=== PATIENT | female | born 1965 | race Caucasian/White ===

== ENCOUNTER 2017-11-22 13:32 | Observation (INO) | payer BC ==
[~2017-11-22] VITALS: Ht 167.6 cm; Wt 76.8 kg
[2017-11-22] VITALS (9 sets, daily range): BP systolic 109–170; BP diastolic 76–90; PULSE 56–87; RESP 16–20; TEMP 97.4–98.7; O2SAT 98–100
[2017-11-22] MEDS ORDERED: ASPIRIN 81 MG CHEW TAB PO ONE (14:00)
[2017-11-22] MEDS ORDERED: SODIUM CHLORIDE 0.9% FLUSH 10 ML FLUSH IVF PRN (14:00)
--- NOTE | 2017-11-22 14:37 | RADRPT ---
EXAM DATE/TIME: 11/22/2017 14:15 [place] COMPARISON: No previous studies available for comparison. INDICATIONS : Chest pain MEDICAL HISTORY : None. SURGICAL HISTORY : None. ENCOUNTER: Initial ACUITY: 2 days PAIN SCORE: 3/10 LOCATION: Bilateral chest FINDINGS: A single view of the chest demonstrates the lungs to be symmetrically aerated without evidence of mas s, infiltrate or effusion. The cardiomediastinal contours are unremarkable. Osseous structures are intact. CONCLUSION: No acute disease. Tone Pereyra MD FACR on November 22, 2017 at 14:33 Board Certified Radiologist. This report was verified electronically.
[2017-11-22 14:59] LABS: AUTOMATED NEUTROPHIL # 3.6 TH/MM3 (1.8-7.7); BASOPHIL % 0.3 % (0.0-2.0); EOSINOPHIL # 0.1 TH/MM3 (0-0.4); EOSINOPHIL % 1.2 % (0.0-4.0); HEMATOCRIT 42.4 % (35.0-46.0); HEMOGLOBIN 14.9 GM/DL (11.6-15.3); LYMPH % 39.8 % (9.0-44.0); LYMPHOCYTE # 2.8 TH/MM3 (1.0-4.8); MEAN CELL VOLUME 87.3 FL (80.0-100.0); MEAN CORPUSCULAR HEMOGLOBIN 30.6 PG (27.0-34.0); MEAN PLATELET VOLUME 9.6 FL (7.0-11.0); MONO % 6.6 % (0.0-8.0); MONOCYTE # 0.5 TH/MM3 (0-0.9); NEUT % 52.1 % (16.0-70.0); PLATELET COUNT 228 TH/MM3 (150-450); RED BLOOD COUNT 4.86 MIL/MM3 (4.00-5.30); RED CELL DISTRIBUTION WIDTH 12.6 % (11.6-17.2)
[2017-11-22 15:05] LABS: CHLORIDE 106 MEQ/L (98-107); SODIUM (NA) 140 MEQ/L (136-145)
[2017-11-22 15:09] LABS: ALBUMIN 4.2 GM/DL (3.4-5.0); BICARBONATE 27.5 MEQ/L (21.0-32.0); BLOOD UREA NITROGEN 10 MG/DL (7-18); CALCIUM 9.2 MG/DL (8.5-10.1); GLUCOSE,RANDOM 88 MG/DL (74-106)
[2017-11-22 15:12] LABS: ALT (GPT) 39 U/L (10-53); AST (GOT) 29 U/L (15-37); CREATININE 0.79 MG/DL (0.50-1.00); GLOMERULAR FILTRATION RATE 76 ML/MIN (>89)
[2017-11-22 15:14] LABS: TOTAL BILIRUBIN ADULT 0.6 MG/DL (0.2-1.0); TOTAL PROTEIN 8.7 GM/DL (6.4-8.2)
[2017-11-22 15:15] LABS: ALKALINE PHOSPHATASE 83 U/L (45-117)
[2017-11-22 15:17] LABS: TROPONIN I LESS THAN 0.02 NG/ML (0.02-0.05)
[2017-11-22 15:24] LABS: PROTHROMBIN TIME - PATIENT 10.4 SEC (9.8-11.6)
--- NOTE | 2017-11-22 15:33 | PD ---
HPI Chief Complaint: Cardiac Complaint Time Seen by Provider: 13:55 Travel History International Travel<30 days: No Contact w/Intl Traveler<30days: No Traveled to known affect area: No History of Present Illness HPI Patient is a 52-year-old female who comes in complaining of palpitations and shortness of breath. She says this started last night, got worse this morning. She says she feels a fullness in her chest, but is not specifically had chest pain. She also says that she feels like she has trouble catching her breath. She says she has extensive cardiac history in her family, her sister has had an RI, her mother of CHF, and her father suffers from severe CHF as well. She works as a nurse, and was concerned that while she was having the symptoms, she took her blood pressure and it was elevated. She denies any leg swelling or pain. She had a hysterectomy several years ago, and is not on any hormone replacement. She denies any recent travel. She is a non-smoker and denies drug use. She says that nothing seems to make her symptoms better. Severity is moderate. PFSH Past Medical History Cancer: Yes (MALIGNANT MELANOMA) Chemotherapy: No Immunizations Current: Yes Radiation Therapy: No Influenza Vaccination: No ?: Not Past Surgical History Hysterectomy: Yes Other Surgery: Yes (RIGHT LATERAL THIGH MELANOMA REMOVED) Social History Alcohol Use: Yes (OCC) Tobacco Use: No (NEVER) Substance Use: No Allergies-Medications (Allergen,Severity, Reaction): Coded Allergies: Sulfa (Sulfonamide Antibiotics) (Verified Allergy, Severe, joint swelling/ rash, 11/22/17) penicillin G (Verified Allergy, Intermediate, rash, 11/22/17) Reported Meds & Prescriptions Reported Meds & Active Scripts Active No Active Prescriptions or Reported Medications Review of Systems Except as stated in HPI: all other systems reviewed are Neg General / Constitutional: No: Fever, Chills HENT: No: Headaches, Lightheadedness Cardiovascular: Positive: Chest Pain or Discomfort, Palpitations Respiratory: Positive: Shortness of Breath Gastrointestinal: No: Nausea, Vomiting Musculoskeletal: No: Myalgias, Edema Skin: No Rash, No Change in Pigmentation Neurologic: No: Weakness, Dizziness Physical Exam Narrative GENERAL: Awake and alert, in no acute distress. SKIN: Focused skin assessment warm/dry. HEAD: Atraumatic. Normocephalic. EYES: Pupils equal and round. No scleral icterus. ENT: Mucous membranes pink and moist. NECK: Trachea midline. No JVD. CARDIOVASCULAR: Regular rate and rhythm. No murmur appreciated. RESPIRATORY: No accessory muscle use. Clear to auscultation. Breath sounds equal bilaterally. GASTROINTESTINAL: Abdomen soft, non-tender, nondistended. MUSCULOSKELETAL: No obvious deformities. No clubbing. No cyanosis. No edema. NEUROLOGICAL: Awake and alert. No obvious cranial nerve deficits. Motor grossly within normal limits. Normal speech. PSYCHIATRIC: Appropriate mood and affect; insight and judgment normal. Data Data Last Documented VS Vital Signs Date Time Temp Pulse Resp B/P (MAP) Pulse Ox O2 Delivery O2 Flow Rate FiO2 11/22/17 14:45 16 100 Room Air 11/22/17 14:45 70 124/90 (101) 11/22/17 13:48 98.5 Orders Orders Electrocardiogram (11/22/17 14:00) Complete Blood Count With Diff (11/22/17 14:00) Comprehensive Metabolic Panel (11/22/17 14:00) D-Dimer (11/22/17 14:00) Prothrombin Time / Inr (Pt) (11/22/17 14:00) Act Partial Throm Time (Ptt) (11/22/17 14:00) Troponin I (11/22/17 14:00) Chest, Single Ap (11/22/17 14:00) Ecg Monitoring (11/22/17 14:00) Bilateral Bp Monitoring (11/22/17 14:00) Iv Access Insert/Monitor (11/22/17 14:00) Oximetry (11/22/17 14:00) Oxygen Administration (11/22/17 14:00) Aspirin Chew (Aspirin Chew) (11/22/17 14:00) Sodium Chloride 0.9% Flush (Ns Flush) (11/22/17 14:00) Labs Laboratory Tests Test 11/22/17 14:45 White Blood Count 7.0 TH/MM3 Red Blood Count 4.86 MIL/MM3 Hemoglobin 14.9 GM/DL Hematocrit 42.4 % Mean Corpuscular Volume 87.3 FL Mean Corpuscular Hemoglobin 30.6 PG Mean Corpuscular Hemoglobin Concent 35.0 % Red Cell Distribution Width 12.6 % Platelet Count 228 TH/MM3 Mean Platelet Volume 9.6 FL Neutrophils (%) (Auto) 52.1 % Lymphocytes (%) (Auto) 39.8 % Monocytes (%) (Auto) 6.6 % Eosinophils (%) (Auto) 1.2 % Basophils (%) (Auto) 0.3 % Neutrophils # (Auto) 3.6 TH/MM3 Lymphocytes # (Auto) 2.8 TH/MM3 Monocytes # (Auto) 0.5 TH/MM3 Eosinophils # (Auto) 0.1 TH/MM3 Basophils # (Auto) 0.0 TH/MM3 CBC Comment DIFF FINAL Differential Comment Blood Urea Nitrogen 10 MG/DL Creatinine 0.79 MG/DL Random Glucose 88 MG/DL Total Protein 8.7 GM/DL Albumin 4.2 GM/DL Calcium Level 9.2 MG/DL Alkaline Phosphatase 83 U/L Aspartate Amino Transf (AST/SGOT) 29 U/L Alanine Aminotransferase (ALT/SGPT) 39 U/L Total Bilirubin 0.6 MG/DL Sodium Level 140 MEQ/L Potassium Level 3.9 MEQ/L Chloride Level 106 MEQ/L Carbon Dioxide Level 27.5 MEQ/L Anion Gap 7 MEQ/L Estimat Glomerular Filtration Rate 76 ML/MIN Troponin I LESS THAN 0.02 NG/ML MDM Medical Decision Making Medical Screen Exam Complete: Yes Emergency Medical Condition: Yes Medical Record Reviewed: Yes Interpretation(s) ECG shows normal sinus rhythm at a rate of 62, no ST elevation or depression. Differential Diagnosis ACS versus an STEMI versus STEMI versus electrolyte abnormality Narrative Course Patient is a 52-year-old female who comes in complaining of palpitations and chest discomfort. Exam shows no acute abnormalities. IV established, labs sent , patient connected to the cardiac catheterization technologist. Labs show a negative troponin. Chest x-ray shows no acute abnormalities. Patient given an aspirin. While she was here, patient experienced the sensation of palpitations again and was noted to have PVCs on the cardiac catheterization technologist, however, they were not frequent enough currently to require treatment and resolved on their own. Patient will be placed in the chest pain center for further management. Diagnosis Primary Impression: Chest pain Qualified Codes: R07.9 - Chest pain, unspecified Additional Impression: Palpitations Admitting Information Admitting Physician Requests: Observation Scripts No Active Prescriptions or Reported Meds Alisa Lawrence MD Nov 22, 2017 15:33
[2017-11-22 15:51] LABS: D-DIMER LESS THAN 0.02 MG/L FEU (0.00-0.50)
[2017-11-22] MEDS ORDERED: SODIUM CHLORID 0.9% 500 ML INJ 500 ML IV ONE (16:00)
[2017-11-22] MEDS ORDERED: NITROGLYCERIN 0.4 MG SL 25 TABS/BTL SL PRN (18:30)
[2017-11-22] MEDS ORDERED: ONDANSETRON HCL 4 MG/2 ML VIAL IV PUSH PRN (18:30)
[2017-11-22] MEDS ORDERED: SODIUM CHLORIDE 0.9% FLUSH 10 ML FLUSH IV FLUSH PRN (18:30)
[2017-11-22] MEDS ORDERED: ACETAMINOPHEN/HYDROcodone 325 MG/7.5 MG TAB PO PRN (18:30)
[2017-11-22] MEDS ORDERED: ACETAMINOPHEN 500 MG CPLT PO PRN (18:30)
[2017-11-22] MEDS ORDERED: MORPHINE SULFATE 4 MG/ML INJ IV PUSH PRN (18:30)
--- NOTE | 2017-11-22 18:31 | HHI.HP ---
[facility] Service [facility] Primary Care Physician Katherine Sarmiento MD Admission Diagnosis Chest Pain, palpitations Diagnoses: (1) Palpitations Diagnosis: Principal Chief Complaint: Palpitations Travel History International Travel<30 Days: No Contact w/Intl Traveler <30 Da: No Traveled to Known Affected Are: No History of Present Illness 52-year-old female with no chronic medical illnesses who presented to the emergency department for evaluation of 3 week history of intermittent palpitations. Patient indicates her symptoms started 3 weeks ago where she feels like her heart is having palpitations and skipping beats. Patient has been tolerating up until today when she went to work she had a different sensation. She felt the palpitations and she has had a weird sensation that maybe her blood pressure was elevated. Patient had a blood pressure taken is 140/84 and she had a type sensation up into her upper chest which she does not describe as a pain but just did not feel right. She denied any actual chest pain, nausea, vomiting, diaphoresis, shortness of breath, lower extremity edema. Patient never had a cardiac workup. She states that she did have an episode of lightheadedness when she was in the emergency department. They gave her some IV fluids with improvement of her lightheadedness. Patient does have risk factors to include age, family history of heart disease. Patient had workup done emergency department and no significant abnormality was found. ER physician recommended patient be observed and chest pain center for further evaluation management. Review of Systems Constitutional: COMPLAINS OF: Dizziness Cardiovascular: COMPLAINS OF: Palpitations Except as stated in HPI: all other systems reviewed are Neg Past Family Social History Past Medical History No chronic medical illnesses Past Surgical History Hysterectomy Melanoma removed from right thigh Reported Medications Reported Meds & Active Scripts Active No Active Prescriptions or Reported Medications Allergies: Coded Allergies: Sulfa (Sulfonamide Antibiotics) (Verified Allergy, Severe, joint swelling/ rash, 11/22/17) penicillin G (Verified Allergy, Intermediate, rash, 11/22/17) Family History Reviewed is significant for mother at age 82 from heart disease, congestive heart failure. Father still alive at age 87 with hypertension, had three-vessel bypass surgery. Sister with hypertension Physical Exam Vital Signs Vital Signs Date Time Temp Pulse Resp B/P (MAP) Pulse Ox O2 Delivery O2 Flow Rate FiO2 11/22/17 17:00 98.7 59 20 127/80 (96) 98 123/79 (94) 11/22/17 16:55 11/22/17 16:45 58 16 109/77 (88) 98 Room Air 11/22/17 15:45 64 16 123/76 (92) 98 Room Air 11/22/17 14:45 16 100 Room Air 11/22/17 14:45 70 16 124/90 (101) 100 Room Air 11/22/17 14:45 100 Room Air 11/22/17 14:10 70 16 99 Room Air 11/22/17 13:48 98.5 70 16 170/84 (112) 99 Physical Exam GENERAL: Well-developed, well-nourished, in no acute distress. alert and orientated HEENT: Head is normocephalic without any lesions or masses noted. Facial features are symmetric. Eyes: Pupils equal round reactive to light. Extraocular muscles are intact. Conjunctivae were clear. Oropharyngeal: Pharynx without any erythema edema. Tongue is midline without deviation. Buccal mucosa is moist without any masses or lesions NECK: Supple without any masses. Trachea midline no deviation. No JVD, no bruits are appreciated CARDIAC: Regular rhythm, regular rate. S1/S2 are heard. No murmurs gallops or rubs. LUNGS: Clear to auscultation bilaterally. No wheeze, rhonchi or rales. No use of accessory muscles on inspiration or expiration. ABDOMEN: Soft, nontender. Nondistended. Bowel sounds heard in all 4 quadrants. No organomegaly or masses. Negative rebound, negative guarding EXTREMITIES: No edema, pulses are equal bilaterally. No cyanosis or clubbing NEUROLOGY: Mood and affect appear appropriate. Cranial nerves II through XII grossly intact. Muscle strength 5/5 in upper and lower extremities bilaterally. Deep tendon reflexes are 2+ in upper and lower extremities bilaterally. Laboratory Laboratory Tests Test 11/22/17 14:45 White Blood Count 7.0 Red Blood Count 4.86 Hemoglobin 14.9 Hematocrit 42.4 Mean Corpuscular Volume 87.3 Mean Corpuscular Hemoglobin 30.6 Mean Corpuscular Hemoglobin Concent 35.0 Red Cell Distribution Width 12.6 Platelet Count 228 Mean Platelet Volume 9.6 Neutrophils (%) (Auto) 52.1 Lymphocytes (%) (Auto) 39.8 Monocytes (%) (Auto) 6.6 Eosinophils (%) (Auto) 1.2 Basophils (%) (Auto) 0.3 Neutrophils # (Auto) 3.6 Lymphocytes # (Auto) 2.8 Monocytes # (Auto) 0.5 Eosinophils # (Auto) 0.1 Basophils # (Auto) 0.0 CBC Comment DIFF FINAL Differential Comment Prothrombin Time 10.4 Prothromb Time International Ratio 1.0 Activated Partial Thromboplast Time 26.4 D-Dimer Quantitative (PE/DVT) LESS THAN 0.02 Blood Urea Nitrogen 10 Creatinine 0.79 Random Glucose 88 Total Protein 8.7 Albumin 4.2 Calcium Level 9.2 Alkaline Phosphatase 83 Aspartate Amino Transf (AST/SGOT) 29 Alanine Aminotransferase (ALT/SGPT) 39 Total Bilirubin 0.6 Sodium Level 140 Potassium Level 3.9 Chloride Level 106 Carbon Dioxide Level 27.5 Anion Gap 7 Estimat Glomerular Filtration Rate 76 Troponin I LESS THAN 0.02 Result Diagram: 11/22/17 1445 11/22/17 1445 Imaging Last Impressions Chest X-Ray 11/22/17 1400 Signed Impressions: Service Date/Time: Wednesday, November 22, 2017 14:15 - CONCLUSION: No acute disease. Tone Pereyra MD FACR Caprini VTE Risk Assessment Caprini VTE Risk Assessment: No/Low Risk (score <= 1) Caprini Risk Assessment Model Point Value = 1 Point Value = 2 Point Value = 3 Point Value = 5 Age 41-60 Minor surgery BMI > 25 kg/m2 Swollen legs Varicose veins or History of unexplained or recurrent spontaneous Oral contraceptives or hormone replacement Sepsis (< 1 month) Serious lung disease, including pneumonia (< 1 month) Abnormal pulmonary function Acute myocardial infarction Congestive heart failure (< 1 month) History of inflammatory bowel disease Medical patient at bed rest Age 61-74 Arthroscopic surgery Major open surgery (> 45 min) Laparoscopic surgery (> 45 min) Malignancy Confined to bed (> 72 hours) Immobilizing plaster cast Central venous access Age >= 75 History of VTE Family history of VTE Factor V Leiden Prothrombin [id number] Lupus anticoagulant Anticardiolipin antibodies Elevated serum homocysteine Heparin-induced thrombocytopenia Other congenital or acquired thrombophilia Stroke (< 1 month) Elective arthroplasty Hip, pelvis, or leg fracture Acute spinal cord injury (< 1 month) Prophylaxis Regimen Total Risk Factor Score Risk Level Prophylaxis Regimen 0-1 Low Early ambulation 2 Moderate Order ONE of the following: *Sequential Compression Device (SCD) *Heparin 5000 units SQ BID 3-4 Higher Order ONE of the following medications: *Heparin 5000 units SQ TID *Enoxaparin/Lovenox 40 mg SQ daily (WT < 150 kg, CrCl > 30 mL/min) *Enoxaparin/Lovenox 30 mg SQ daily (WT < 150 kg, CrCl > 10-29 mL/min) *Enoxaparin/Lovenox 30 mg SQ BID (WT < 150 kg, CrCl > 30 mL/min) AND/OR *Sequential Compression Device (SCD) 5 or more Highest Order ONE of the following medications: *Heparin 5000 units SQ TID (Preferred with Epidurals) *Enoxaparin/Lovenox 40 mg SQ daily (WT < 150 kg, CrCl > 30 mL/min) *Enoxaparin/Lovenox 30 mg SQ daily (WT < 150 kg, CrCl > 10-29 mL/min) *Enoxaparin/Lovenox 30 mg SQ BID (WT < 150 kg, CrCl > 30 mL/min) AND *Sequential Compression Device (SCD) Assessment and Plan Assessment and Plan Palpitations possible coronary component Patient with increased risk factors to include age, postmenopausal without exogenous hormones, family history of heart disease We'll rule patient out for any acute coronary event with serial cardiac which are negative thus far EKG shows sinus rhythm without any abnormality. We'll continue serial EKGs We'll plan exercise stress test rule out any underlying ischemia if patient ruled out for acute coronary event Continue aspirin, nitroglycerin as needed We'll check TSH, lipid panel DVT prevention sequential compression devices Tariq Eric Nov 22, 2017 18:31
[2017-11-22 19:24] LABS: TROPONIN I LESS THAN 0.02 NG/ML (0.02-0.05)
[2017-11-22 22:02] LABS: TROPONIN I LESS THAN 0.02 NG/ML (0.02-0.05)
[2017-11-22] MEDS: SODIUM CHLORIDE 0.9% FLUSH 10 ML FLUSH IV FLUSH SCH (22:53)
[2017-11-23 01:26] VITALS: BP 106/68; PULSE 63; RESP 18; TEMP 97.3; O2SAT 97
[2017-11-23 05:15] VITALS: BP 111/76; PULSE 58; RESP 18; TEMP 96.7; O2SAT 99
[2017-11-23 07:50] VITALS: BP 111/72; PULSE 53; RESP 20; TEMP 97.6; O2SAT 97
[2017-11-23] MEDS: SODIUM CHLORIDE 0.9% FLUSH 10 ML FLUSH IV FLUSH SCH (09:00)
[2017-11-23] MEDS ORDERED: ASPIRIN 325 MG TAB PO SCH (09:00)
--- NOTE | 2017-11-23 09:13 | HHI.PR ---
Subjective Remarks Patient seen and examined today for follow-up palpitations and chest discomfort. Patient denies any recurrent chest pain. Patient did undergo stress test which was unremarkable. Patient not experience any discomfort during stress testing. Objective Vitals Vital Signs Date Time Temp Pulse Resp B/P (MAP) Pulse Ox O2 Delivery O2 Flow Rate FiO2 11/23/17 05:15 96.7 58 18 111/76 (88) 99 11/23/17 01:26 97.3 63 18 106/68 (81) 97 11/22/17 20:25 97.4 56 18 123/77 (92) 99 11/22/17 20:00 73 11/22/17 19:30 98 21 11/22/17 18:30 87 11/22/17 17:00 98.7 59 20 127/80 (96) 98 123/79 (94) 11/22/17 16:55 11/22/17 16:45 58 16 109/77 (88) 98 Room Air 11/22/17 15:45 64 16 123/76 (92) 98 Room Air 11/22/17 14:45 16 100 Room Air 11/22/17 14:45 70 16 124/90 (101) 100 Room Air 11/22/17 14:45 100 Room Air 11/22/17 14:10 70 16 99 Room Air 11/22/17 13:48 98.5 70 16 170/84 (112) 99 I/O 11/22/17 11/22/17 11/22/17 11/23/17 11/23/17 11/23/17 07:00 15:00 23:00 07:00 15:00 23:00 Intake Total 500 ml Balance 500 ml Intake IV Total 500 ml # Voids 2 2 # Bowel Movements 0 Result Diagram: 11/22/17 1445 11/22/17 1445 Objective Remarks GENERAL: Well-developed, well-nourished, in no acute distress. alert and orientated HEENT: Head is normocephalic without any lesions or masses noted. Facial features are symmetric. Eyes: Extraocular muscles are intact. Conjunctivae were clear. NECK: Supple without any masses. Trachea midline no deviation. No JVD, CARDIAC: Regular rhythm, regular rate. S1/S2 are heard. No murmurs gallops or rubs. LUNGS: Clear to auscultation bilaterally. No wheeze, rhonchi or rales. No use of accessory muscles on inspiration or expiration. ABDOMEN: Soft, nontender. Nondistended. Bowel sounds heard in all 4 quadrants. No organomegaly or masses. Negative rebound, negative guarding EXTREMITIES: No edema, pulses are equal bilaterally. No cyanosis or clubbing NEUROLOGY: Mood and affect appear appropriate. Cranial nerves II through XII grossly intact. Moving all extremities, speech is clear Urinary Catheter: No Vascular Central Line Catheter: No A/P Assessment and Plan Palpitations possible coronary component Patient with increased risk factors to include age, postmenopausal without exogenous hormones, family history of heart disease Serial cardiac enzymes were performed which were negative and ruled out any acute coronary event. Serial EKG shows sinus rhythm without any abnormality. Exercise stress test was performed which did not indicate any underlying ischemia. Continue aspirin, nitroglycerin as needed TSH was normal Hyperlipidemia LDL 161 Notify patient of results, counseled her extensively on lipid control Patient does not want to start any medications at this time. She will pursue lifestyle modifications with diet, exercise, possible red rice yeast I notified patient follow-up with her primary medical doctor for management of her lipids DVT prevention sequential compression devices Discharge Planning Discharge home in stable condition Activity: Ad maria elena. Diet: Healthy heart diet Medications per medication reconciliation Follow-up primary medical doctor in one week Tariq Eric Nov 23, 2017 09:13
--- NOTE | 2017-11-23 10:31 | HHI.DCPOC ---
Discharge Care Plan Diagnosis: (1) Chest pain (2) Palpitations Goals to Promote Your Health * To prevent worsening of your condition and complications * To maintain your health at the optimal level Directions to Meet Your Goals Take your medications as prescribed Follow your dietary instruction Follow activity as directed Keep your appointments as scheduled Take your immunizations and boosters as scheduled If your symptoms worsen call your PCP, if no PCP go to Urgent Care Center or Emergency Room Smoking is Dangerous to Your Health. Avoid second hand smoke Call the 24-hour hour crisis hotline for domestic abuse at Tariq Eric Nov 23, 2017 10:31
[2017-11-23 10:35] LABS: CHOLESTEROL/ HDL RATIO 4.51 RATIO; HDL CHOLESTEROL 53.4 MG/DL (40.0-60.0)
--- NOTE | 2017-11-23 14:35 | EKG ---
Date Performed: 11/22/2017 Time Performed: 14:11:57 PTAGE: 52 years EKG: Sinus rhythm NORMAL ECG NO PREVIOUS TRACING DOCTOR: Aaron Yao Interpretating Date/Time 11/23/2017 14:29:57
--- NOTE | 2017-11-23 14:52 | EKG ---
Date Performed: 11/22/2017 Time Performed: 22:24:14 PTAGE: 52 years EKG: SINUS BRADYCARDIA POSSIBLE RIGHT VENTRICULAR CONDUCTION DELAY BORDERLINE ECG PREVIOUS TRACING : 11/22/2017 20.10 Since the prior tracing, there has been no significant morales DOCTOR: Aaron Yao Interpretating Date/Time 11/23/2017 14:44:25
--- NOTE | 2017-11-23 14:52 | EKG ---
Date Performed: 11/22/2017 Time Performed: 20:10:55 PTAGE: 52 years EKG: Sinus rhythm NONSPECIFIC T-WAVE ABNORMALITY BORDERLINE ECG PREVIOUS TRACING : 11/22/2017 14.11 Since the prior tracing, there has been no significant morales DOCTOR: Aaron Yao Interpretating Date/Time 11/23/2017 14:44:34
--- NOTE | 2017-11-29 09:05 | TR ---
Date Performed: 11/23/2017 Time Performed: 09:55:15 DOCTOR: Letty Brown DRUG LIST: CLINICAL HISTORY: CHEST PAIN REASON FOR TEST: Angina REASON FOR ENDING: Completed Protocol OBSERVATION: Chest Pain: None CONCLUSION: Patient tolerated SAVANNAH protocol with Total Exercise Time=8:06 Maximum NF=166 % Max HR Achieved=87.0% Maximum VZ=022/85, Testing stopped secondary to goals acheived. Patient reached tar get HR. During peak exercise patient was asymptomatic. Upsloping ST segments. HR and BP appropriate r esponse to exercise. Recovery period, HR returned to normal rather quickly. Bp returned to baseline COMMENTS:
== END 2017-11-23 12:00 | disposition home or self-care (01) ==
LOC: PHED 13:32 → PHEDA 16:03 → PH3A 16:53
PROVIDERS: ADMIT Hospitalist; ATTEND Hospitalist
DX: R00.2 Palpitations (principal); R42 Dizziness and giddiness; R00.1 Bradycardia, unspecified; R06.02 Shortness of breath; I20.9 Angina pectoris, unspecified; E78.5 Hyperlipidemia, unspecified; Z85.820 Personal history of malignant melanoma of skin; Z82.49 Family history of ischemic heart disease and other diseases of the circulatory system; Z88.2 Allergy status to sulfonamides; Z88.0 Allergy status to penicillin
CPT/HCPCS: 71045; 80053; 80061; 82550; 84443; 84484; 85025; 85379; 85610; 85730; 93005; 93017; 96360; 96361; 99285; G0378; J7040